=== PATIENT | female | born 1985 | race Hispanic/Latino ===

== ENCOUNTER 2022-11-17 08:48 | Emergency (ER) | payer SELFPAY ==
[2022-11-17] MEDS ORDERED: Morphine 4 MG/ML VIAL ONE (09:31)
[2022-11-17] MEDS ORDERED: Ondansetron PF 4 MG/2 ML Vial ONE (09:31)
[2022-11-17] MEDS ORDERED: Sodium Chloride 0.9% 500 ML ONE (09:31)
[2022-11-17 09:35] LABS: #Basophils 0.1 thou/uL (0.0-0.2); #Eosinphils 0.1 thou/uL (0.0-0.7); #Lymphocytes 1.8 thou/uL (1.20-3.40); #Monocytes 0.4 thou/uL (0.11-0.59); #Neutrophils 5.5 thou/uL (1.40-6.50); %Basophils 0.9 % (0.0-1.0); %Eosinophils 1.5 % (0.0-10.0); %Lymphocytes 23.2 % (21.0-51.0); %Monocytes 4.7 % (0.0-10.0); %Neutrophils 69.7 % (42.0-75.0); Hemoglobin 13.9 g/dL (12.0-16.0); Mean Corpuscular HGB CONC 31.9 g/dL (32.0-36.0); Mean Corpuscular Hemoglobin 28.4 pg (27.0-31.0); Mean Corpuscular Volume 88.9 fl (78.0-98.0); Mean Platelet Volume 9.2 fL (7.4-10.4); Platelet Count 218 10x3/uL (130-400); RBC Distribution Width 14.1 % (11.5-14.5); Red Blood Cell (RBC) Count 4.91 mill/uL (4.20-5.40); White Blood Cell (WBC) Count 7.9 10x3/uL (4.8-10.8)
[2022-11-17 09:54] LABS: ALT (SGPT) 142 U/L (8-55); AST (SGOT) 224 U/L (5-34); Albumin 4.2 g/dL (3.5-5.0); Alkaline Phosphatase 115 U/L (40-110); Anion Gap 15 mmol/L (10-20); BUN (Urea Nitrogen) 15 mg/dL (7.0-18.7); Bilirubin, Total 0.7 mg/dL (0.2-1.2); Calc. Creatinine Clearance 0 mL/min (70-130); Calcium 9.7 mg/dL (7.8-10.44); Carbon Dioxide 26 mmol/L (22-29); Chloride 104 mmol/L (98-107); Estimated GFR 102; Globulin 3.1 g/dL (2.4-3.5); Glucose 112 mg/dL (70-105); Lipase 299 U/L (8-78); Potassium 3.5 mmol/L (3.5-5.1); Protein, Total 7.3 g/dL (6.0-8.3); Sodium 141 mmol/L (136-145)
== END 2022-11-17 11:15 | disposition short-term general hospital (02) ==
LOC: NAV ERS 08:48
DX: R10.11 Right upper quadrant pain (principal); R74.01 Elevation of levels of liver transaminase levels
CPT/HCPCS: 36415; 80053; 83690; 85025; 96374; 96375; J2270; J2405; J7030

== ENCOUNTER 2024-04-18 20:47 | Emergency (ER) | payer BC ==
[2024-04-18] MEDS ORDERED: Cephalexin 250 MG CAP ONE (21:50)
[2024-04-18] MEDS ORDERED: predniSONE 20 MG TAB ONE (21:50)
== END 2024-04-18 22:03 | disposition home or self-care (01) ==
LOC: NAV ERS 20:47
DX: J02.9 Acute pharyngitis, unspecified (principal); K04.7 Periapical abscess without sinus; R09.82 Postnasal drip
CPT/HCPCS: 87081; 87428; 87430; 99283; J7512